=== PATIENT | male | born 1950 | race Caucasian/White ===

== ENCOUNTER 2023-04-24 08:30 | Outpatient (RCR) | payer MEDICARE, OTHER, SELFPAY | END 2023-04-24 23:59 | disposition home or self-care (01) | LOC: ROT 08:30 | PROVIDERS: ATTENDING PHYSICIAN Family Medicine | DX: I69.398 Other sequelae of cerebral infarction (principal); Z73.6 Limitation of activities due to disability; H53.9 Unspecified visual disturbance | CPT/HCPCS: 97167; 97530; 97537 ==

== ENCOUNTER 2023-05-16 11:49 | Observation (INO) | payer MEDICARE, OTHER, SELFPAY ==
[2023-05-16] VITALS (14 sets, daily range): BP systolic 68–171; BP diastolic 70–101
[2023-05-16 08:17] LABS: % Basophils 0.5 % (0-2); % Eosinophils 2.7 % (0-6); % Immature Granulocytes 0.3 % (0-0.5); % Lymphocytes 17.9 % (20.5-51.1); % Monocytes 8.1 % (1.7-9.3); % Neutrophils 70.5 % (42.2-75.2); Absolute Basophils 0.1 10^3/uL (0-0.2); Absolute Eosinophils 0.3 10^3/uL (0-0.7); Absolute Monocytes 0.9 10^3/uL (0.1-0.6); Absolute Neutrophils 7.8 10^3/uL (1.4-6.5); Hematocrit 43.2 % (39.0-52.0); Hemoglobin 14.3 g/dL (13.0-18.0); Mean Corp Hgb Conc. 33.1 g/dL (33.0-37.0); Mean Corpuscular Hgb 29.6 pg (27.0-31.0); Mean Corpuscular Volume 89.4 fL (80.0-94.0); Mean Platelet Volume 10.3 fL (7.4-10.4); Nucleated Red Blood Cells % 0 % (-); Platelet Count 273 10^3/uL (130-400); Red Blood Cell Count 4.83 10^6/uL (4.70-6.10); Red Cell Dist. Width 15.8 % (11.5-14.5); White Blood Cell Count 11.1 10^3/uL (4.8-10.8)
[2023-05-16 08:30] LABS: INR 1.19; PT 14.9 Sec (11.4-14.6)
[2023-05-16 08:31] LABS: APTT 48.3 Sec (23.4-35.0)
[2023-05-16 08:45] LABS: ALT (SGPT) 49 U/L (0-50); AST (SGOT) 53 U/L (17-59); Albumin 4.1 g/dl (3.5-5.0); Alkaline Phosphatase 91 U/L (38-126); Blood Urea Nitrogen 16 mg/dl (9-20); Carbon Dioxide 27 mmol/L (22-30); Chloride 106 mmol/L (98-107); Direct Bilirubin 0.6 mg/dl (0.0-0.4); Estimated Creatinine Clearance 70 ml/min; Glucose 121 mg/dl (70-99); LDH 212 U/L (120-246); Potassium 4.5 mmol/L (3.5-5.1); Sodium 138 mmol/L (135-145); Total Bilirubin 0.9 mg/dl (0.2-1.3); Total Protein 6.7 g/dl (6.3-8.2); eGFR > 60.00
[2023-05-16] MEDS: UNASYN IV (09:07)
[2023-05-16] MEDS: NSS 1000 IV (09:08)
[2023-05-16] MEDS: DECADRON 8 MG IV (09:09)
[2023-05-16] MEDS: BENADRYL 50 MG IV (09:17)
--- NOTE | 2023-05-16 09:24 | PTCARENOTE ---
0915 Patient states feels like throat closing. Face flushed, no hives. Unisyn immediately stopped and Dr Maldonado to bedside. Benadryl given IV with symptoms resolving with in 5 minutes. Approximately 20ml of unisyn infused.
[2023-05-16] MEDS: VANCOCIN 200 IV (10:02)
[2023-05-16] MEDS: ZOFRAN 54 MG IV (10:29)
--- NOTE | 2023-05-16 17:34 | W.PN.UPDATE ---
Update Note
Progress Note Update
s/p chemoembolization of HCC.
Patient denies any pain or nausea. OK for discharge to home. He knows to call IR physician insulation blower with any concerns or questions.
== END 2023-05-16 19:20 | disposition home or self-care (01) ==
LOC: 4 EAST ACU 11:49
PROVIDERS: ADMITTING PHYSICIAN Radiology Vascular & Interventional Radiology; ATTENDING PHYSICIAN Internal Medicine Hematology & Oncology
DX: C22.0 Liver cell carcinoma (principal); D72.829 Elevated white blood cell count, unspecified; H91.93 Unspecified hearing loss, bilateral; I48.91 Unspecified atrial fibrillation; I10 Essential (primary) hypertension; G47.33 Obstructive sleep apnea (adult) (pediatric); E66.9 Obesity, unspecified; E78.5 Hyperlipidemia, unspecified; E11.9 Type 2 diabetes mellitus without complications; K75.81 Nonalcoholic steatohepatitis (NASH); H35.039 Hypertensive retinopathy, unspecified eye; M54.16 Radiculopathy, lumbar region; Z68.36 Body mass index [BMI] 36.0-36.9, adult; Z91.018 Allergy to other foods; Z79.82 Long term (current) use of aspirin; Z79.01 Long term (current) use of anticoagulants; Z86.010 Personal history of colon polyps; Z72.0 Tobacco use; Z79.84 Long term (current) use of oral hypoglycemic drugs
CPT/HCPCS: 36247; 36415; 37243; 75726; 76937; 80053; 82248; 83615; 85025; 85610; 85730; 96420; C1769; G0378; J9000

== ENCOUNTER → 2023-09-01 09:20 | Outpatient (REF) | payer MEDICARE, OTHER, SELFPAY ==
[2023-09-01 10:57] LABS: % Basophils 0.5 % (0-2); % Eosinophils 3.3 % (0-6); % Immature Granulocytes 0.3 % (0-0.5); % Lymphocytes 23.4 % (20.5-51.1); % Monocytes 9.2 % (1.7-9.3); % Neutrophils 63.3 % (42.2-75.2); Absolute Basophils 0.1 10^3/uL (0-0.2); Absolute Eosinophils 0.4 10^3/uL (0-0.7); Absolute Lymphocytes 2.6 10^3/uL (1.2-3.4); Absolute Neutrophils 7.1 10^3/uL (1.4-6.5); Hematocrit 46.6 % (39.0-52.0); Hemoglobin 14.9 g/dL (13.0-18.0); Mean Corpuscular Hgb 28.3 pg (27.0-31.0); Mean Corpuscular Volume 88.4 fL (80.0-94.0); Mean Platelet Volume 10.6 fL (7.4-10.4); Nucleated Red Blood Cells % 0 % (-); Platelet Count 247 10^3/uL (130-400); Red Blood Cell Count 5.27 10^6/uL (4.70-6.10); Red Cell Dist. Width 17.1 % (11.5-14.5); White Blood Cell Count 11.3 10^3/uL (4.8-10.8)
[2023-09-01 11:42] LABS: ALT (SGPT) 50 U/L (0-50); AST (SGOT) 48 U/L (17-59); Albumin 4.1 g/dl (3.5-5.0); Alkaline Phosphatase 89 U/L (38-126); Blood Urea Nitrogen 17 mg/dl (9-20); Calcium 9.4 mg/dl (8.4-10.2); Carbon Dioxide 22 mmol/L (22-30); Chloride 107 mmol/L (98-107); Direct Bilirubin 0.4 mg/dl (0.0-0.4); Glucose 112 mg/dl (70-99); HDL Cholesterol 40 mg/dl; LDL Cholesterol, Calculated 45 mg/dl; Potassium 4.7 mmol/L (3.5-5.1); Sodium 140 mmol/L (135-145); Total Bilirubin 0.6 mg/dl (0.2-1.3); Total Cholesterol 108 mg/dl (50-199); Total Protein 6.8 g/dl (6.3-8.2); Triglyceride 115 mg/dl (10-149); Very Low Density Lipoprotein 23 mg/dl (0-30); eGFR > 60.00
[2023-09-01 12:05] LABS: Microalbumin/creatinine Ratio 23.6 mg/g
[2023-09-01 12:15] LABS: AFP Male/Tumor Marker 4.77 ng/ml
[2023-09-01 13:11] LABS: Glycohemoglobin (HgbA1c) 7.4 % (4.0-5.6)
== END ==
LOC: REG 09:20
PROVIDERS: ATTENDING PHYSICIAN Internal Medicine Hematology & Oncology; FAMILY PHYSICIAN Family Medicine
DX: D72.829 Elevated white blood cell count, unspecified (principal); Z72.0 Tobacco use; C22.0 Liver cell carcinoma; E13.319 Other specified diabetes mellitus with unspecified diabetic retinopathy without macular edema; E78.5 Hyperlipidemia, unspecified
CPT/HCPCS: 36415; 80053; 80061; 82043; 82105; 82248; 82570; 83036; 85025

== ENCOUNTER → 2023-09-05 10:02 | Outpatient (REF) | payer MEDICARE, OTHER, SELFPAY | LOC: RAD 10:02 | PROVIDERS: ATTENDING PHYSICIAN Internal Medicine Hematology & Oncology; FAMILY PHYSICIAN Family Medicine | DX: D72.829 Elevated white blood cell count, unspecified (principal); Z72.0 Tobacco use; C22.0 Liver cell carcinoma | CPT/HCPCS: 71260; 74177; Q9967 ==

== ENCOUNTER → 2023-09-15 16:59 | Outpatient (REF) | payer MEDICARE, OTHER, SELFPAY | LOC: MRI 16:59 | PROVIDERS: ATTENDING PHYSICIAN Internal Medicine Hematology & Oncology; FAMILY PHYSICIAN Family Medicine | DX: D72.829 Elevated white blood cell count, unspecified (principal); Z72.0 Tobacco use; C22.0 Liver cell carcinoma | CPT/HCPCS: 74183; A9581 ==

== ENCOUNTER → 2023-12-18 09:52 | Outpatient (REF) | payer MEDICARE, OTHER, SELFPAY | LOC: MRI 3T 09:52 | PROVIDERS: ATTENDING PHYSICIAN Internal Medicine Hematology & Oncology; FAMILY PHYSICIAN Family Medicine | DX: C22.0 Liver cell carcinoma (principal); D72.829 Elevated white blood cell count, unspecified | CPT/HCPCS: 74183; A9581 ==

== ENCOUNTER → 2023-12-26 12:02 | Outpatient (REF) | payer MEDICARE, OTHER, SELFPAY ==
[2023-12-26 13:19] LABS: % Basophils 0.4 % (0-2); % Eosinophils 2.3 % (0-6); % Immature Granulocytes 0.4 % (0-0.5); % Lymphocytes 18.6 % (20.5-51.1); % Monocytes 10.1 % (1.7-9.3); % Neutrophils 68.2 % (42.2-75.2); Absolute Basophils 0.1 10^3/uL (0-0.2); Absolute Eosinophils 0.3 10^3/uL (0-0.7); Absolute Immature Granulocytes 0.1 10^3/uL (0-0.05); Absolute Lymphocytes 2.2 10^3/uL (1.2-3.4); Absolute Monocytes 1.2 10^3/uL (0.1-0.6); Absolute Neutrophils 7.9 10^3/uL (1.4-6.5); Hematocrit 44.9 % (39.0-52.0); Hemoglobin 15.1 g/dL (13.0-18.0); Mean Corp Hgb Conc. 33.6 g/dL (33.0-37.0); Mean Corpuscular Hgb 30.7 pg (27.0-31.0); Mean Corpuscular Volume 91.3 fL (80.0-94.0); Mean Platelet Volume 10.4 fL (7.4-10.4); Nucleated Red Blood Cells % 0 % (-); Platelet Count 239 10^3/uL (130-400); Red Blood Cell Count 4.92 10^6/uL (4.70-6.10); Red Cell Dist. Width 15.3 % (11.5-14.5); White Blood Cell Count 11.5 10^3/uL (4.8-10.8)
[2023-12-26 13:54] LABS: Glycohemoglobin (HgbA1c) 6.9 % (4.0-5.6)
[2023-12-26 13:56] LABS: ALT (SGPT) 64 U/L (0-50); AST (SGOT) 68 U/L (17-59); Albumin 4.1 g/dl (3.5-5.0); Alkaline Phosphatase 90 U/L (38-126); Blood Urea Nitrogen 15 mg/dl (9-20); Calcium 9.4 mg/dl (8.4-10.2); Carbon Dioxide 22 mmol/L (22-30); Chloride 105 mmol/L (98-107); Direct Bilirubin 0.2 mg/dl (0.0-0.4); Glucose 126 mg/dl (70-99); Potassium 4.6 mmol/L (3.5-5.1); Sodium 142 mmol/L (135-145); Total Bilirubin 0.5 mg/dl (0.2-1.3); Total Protein 6.6 g/dl (6.3-8.2); eGFR > 60.00
[2023-12-26 14:29] LABS: AFP Male/Tumor Marker 5.32 ng/ml
== END ==
LOC: REG 12:02
PROVIDERS: ATTENDING PHYSICIAN Internal Medicine Hematology & Oncology; FAMILY PHYSICIAN Family Medicine
DX: D72.829 Elevated white blood cell count, unspecified (principal); Z72.0 Tobacco use; C22.0 Liver cell carcinoma; E11.21 Type 2 diabetes mellitus with diabetic nephropathy
CPT/HCPCS: 36415; 80053; 82105; 82248; 83036; 85025

== ENCOUNTER 2024-02-23 14:33 | Emergency (ER) | payer MEDICARE, OTHER, SELFPAY ==
[2024-02-23 14:37] VITALS: BP 133/84
--- NOTE | 2024-02-23 15:54 | ED.MUSCINJ ---
HPI-Injury
<Mari Griffin LEAD INJECTION MOLD TECHNICIAN - Last Filed: 02/23/24 23:07>
General
Chief Complaint: Extremity Pain (non-traumatic)
Source: patient
Exam Limitations: none
Time Seen by Provider: 02/23/24 15:54
Nursing documentation reviewed up to this point in time: agreed with
History of Present Illness-Injury
Initial Injury comments:
73-year-old male with history of A-fib on Eliquis, HTN, GI bleed, TIA, presents for two days of intermittent right leg feeling like jelly, denies falling but it seems to just give out. Denies overuse or injury. Denies pain. His concern is that he is
afraid to drive or go on stairs for fear of the leg giving out. Denies pain in the leg, denies swelling, redness or warmth. Denies bony pain. Denies facial or upper extremity weakness. Has not fallen
Past History
<Mari Griffin, LEAD INJECTION MOLD TECHNICIAN - Last Filed: 02/23/24 23:07>
Past History
ED Past Medical History: Arrthythmia, CVA, HTN and Other (Prediabetes)
ED Past Surgical History: Other (hernia repair)
Social History
Tobacco: Former smoker
Alcohol: Occasional
Living: with family
Family History
Family History: Other (Father with diverticulosis)
Review of Systems
<Mari Griffin, LEAD INJECTION MOLD TECHNICIAN - Last Filed: 02/23/24 23:07>
Review of Systems
Allergies reviewed?: Yes
All Other Systems: ROS reviewed and negative except as documented in HPI and ROS
Constitutional: Denies fever
Respiratory: Denies trouble breathing
Cardiac: Denies chest pain
ABD/GI: Denies abdominal pain, diarrhea or constipated
: Denies dysuria, frequency, flank pain, incontinence, difficulty voiding or urgency
Musculoskeletal: Denies edema or neck pain
Skin: Reports no symptoms
Neurological: Reports weakness (intermittent right leg weakness); Denies dizzy, headache or numbness
Phy Exam
<Mari Griffin NP - Last Filed: 02/23/24 23:07>
Physical Exam
Physical Exam:
GENERAL: No acute distress. A&Ox3.
CONSTITUTIONAL: Afebrile.
EYES: PERRL, conjunctivae normal
ENMT: moist mucus membranes, Pharynx nl
RESPIRATORY: Regular respirations, nonlabored, lungs clear.
CARDIOVASCULAR: Regular rate and rhythm, no murmurs, no rubs.
GI: Soft, nontender, normal BS
MUSCULOSKELETAL: No spinal bony tenderness, back is non tender. Pt bends, squats and touches floor and back up with ease. No limited ROM. Moves with ease. Well perfused.
SKIN: Warm, dry, pink
PSYCH: Normal mood and affect. Well kept, interactive and appropriate
NEUROLOGIC: Awake, alert and oriented. No focal neurological deficits. Strength 5/5 throughout, ambulates well with steady gait. Patellar reflexes normal, dorsi and plantar flexion intact.
<Mari Griffin LEAD INJECTION MOLD TECHNICIAN - Last Filed: 02/23/24 23:07>
MDM/Problems Addressed
Differential Diagnosis Includes:
sciatica, lumbar radiculopathy
MDM/Problems Addressed:
73-year-old male with history of A-fib on Eliquis, HTN, GI bleed, TIA, presents for two days of intermittent right leg feeling like jelly, denies falling but it seems to just give out. Denies overuse or injury. Denies pain. His concern is that he is
afraid to drive or go on stairs for fear of the leg giving out. Denies pain in the leg, denies swelling, redness or warmth. Denies bony pain. Has not fallen.
Pt has no neuro deficits, no indication of CVA/TIA
Pain elicited with certain movement, suspect lumbar radiculopathy
Pt ambulating well at discharge, friend with him has a cane he can use. He has railings on all of his stairs at home.
Dr. King evaluated pt and agrees with assessment and plan.
<Mari Griffin NP - Last Filed: 02/23/24 23:07>
*Critical Care Note
Total Time (30-74mins, 75-104mins- exclusive of procedures): Not Applicable
ED Attending Note
<Mari Griffin NP - Last Filed: 02/23/24 23:07>
-
Portions of this chart may have been created with voice recognition software.� Occasional wrong word or��sound alike� substitutions may have occurred due to the inherent limitations of voice recognition software.
<Greg King MD - Last Filed: 02/23/24 19:37>
ED Attending Note
Patient seen and examined by attending physician: Yes
ED Attending Note:
I have seen and evaluated the patient with a [id number] encounter. I have spoken to the advance practicer provider and involved in the medical history, the physical exam, medical decision making.
Evaluation and management service: agree unless noted differently below.
Results interpretation: agree unless noted differently below.
Focused HPI: 73-year-old male with history as documented presents for evaluation of intermittent right leg weakness. Patient reports intermittently over the past 2 to 3 days he has had episodes where his right leg feels weak 'like jelly' underneath
him. He says that these episodes typically occur after he is sitting for a prolonged period but occasionally happen when he is walking. He reports that usually last for about a minute or 2 and then resolves. He says that he never has any
associated weakness in the right arm, never has weakness on the left side. He denies any associated headache, speech or vision changes. He denies any back pain. Denies any other complaints. He has had issues with sciatica in the past he says.
Physical exam: Awake alert nondistressed. Vital signs normal. Cranial nerves are intact 2 through 12. Speech fluid no dysarthria or aphasia. Motor and sensory function intact proximally and distally in the upper and lower
extremities�specifically strength is 5/5 proximally and distally on flexion at the hip, flexion/extension at the knee, dorsiflexion/plantarflexion in the ankle on the right side. Patient is ambulatory in the ED.
Medical Decision Makin-year-old male presents for occasional right leg weakness over the past few days. No other associated neurologic symptoms, symptoms confined to the right leg and seem to be triggered by prolonged sitting. Suspect likely
lumbar radiculopathy. Asymptomatic at present. Stable for discharge, follow-up with PCP as an outpatient.
Discharge Plan
Departure
Patient Disposition: Home (Routine Discharge)
Date of Disposition: 02/23/24
Time of Disposition: 17:03
Patient with high blood pressure during this ER visit?: No
Condition: Good
Discharge Problem:
Acute right lumbar radiculopathy
Instructions: Sciatica (DC), Radiculopathy (DC)
Prescriptions:
No Action
multivitamin with folic acid [Tab-A-Rafi] 1 TABLET tablet
1 tab PO DAILY
ascorbic acid (vitamin C) [Vitamin C] 1,000 mg Tablet
1,000 mg PO DAILY
acetaminophen [Tylenol] 325 mg Tablet
650 mg PO Q4HPRN PRN (Reason: mild pain)
diltiazem HCl 180 mg Capsule,Extended Release 24 Hr
180 mg PO DAILY
rosuvastatin [Crestor] 20 mg Tablet
20 mg PO DAILY
metformin 500 mg Tablet Extended Release 24 Hr
1,500 mg PO DAILY@0800
coQ10 (ubiquinol) 200 mg Capsule
200 mg PO DAILY
krill oil 500 mg Capsule
350 mg PO DAILY
Eliquis 5 mg Tablet
5 mg PO BID
PreserVision AREDS-2 250-90-40-1 mg Capsule
1 tab PO BID
Referrals:
Norma Sauceda MD [Family Provider] - Call in 1-3 days for appt
Activity Restrictions/Additional Instructions:
As we discussed, take Tylenol 1000 mg up to 3 times a day as needed for back, leg discomfort.
You have no sign of a stroke
See your doctor in 5-7 days if not better by then
Interventions
Interventions:
*Risk Screen - Suicide Last Done: 02/23/24 14:37
*General Assessment Last Done: 02/23/24 14:37
*Neglect/Abuse Screening Last Done: 02/23/24 17:13
*ED COVID-19 Vaccine History Last Done: 02/23/24 14:37
*Nursing Disposition Last Done: 02/23/24 17:13
ED-Skin Assessment Last Done: 02/23/24 15:13
ED-Musculoskeletal Assessment Last Done: 02/23/24 15:13
Discharge Date and Time
Discharge Date/Time: 02/23/24 17:15
Print Language: CZECH
[2024-02-23 17:13] VITALS: BP 130/84
== END 2024-02-23 17:15 | disposition home or self-care (01) ==
LOC: EMR 14:33
PROVIDERS: EMERGENCY PHYSICIAN Emergency Medicine; FAMILY PHYSICIAN Family Medicine
DX: M54.16 Radiculopathy, lumbar region (principal); I10 Essential (primary) hypertension; Z87.891 Personal history of nicotine dependence; I48.91 Unspecified atrial fibrillation; R73.03 Prediabetes; Z79.01 Long term (current) use of anticoagulants; Z83.79 Family history of other diseases of the digestive system; Z86.73 Personal history of transient ischemic attack (TIA), and cerebral infarction without residual deficits
CPT/HCPCS: 99282

== ENCOUNTER 2024-03-21 06:51 | Day surgery (SDC) | payer MEDICARE, OTHER, SELFPAY ==
[2024-03-21] VITALS (9 sets, daily range): BP systolic 58–147; BP diastolic 55–85
[2024-03-21 07:32] LABS: % Basophils 0.4 % (0-2); % Eosinophils 2.2 % (0-6); % Immature Granulocytes 0.4 % (0-0.5); % Lymphocytes 16.5 % (20.5-51.1); % Monocytes 7.8 % (1.7-9.3); % Neutrophils 72.7 % (42.2-75.2); Absolute Eosinophils 0.3 10^3/uL (0-0.7); Absolute Lymphocytes 1.9 10^3/uL (1.2-3.4); Absolute Monocytes 0.9 10^3/uL (0.1-0.6); Absolute Neutrophils 8.3 10^3/uL (1.4-6.5); Hematocrit 44.9 % (39.0-52.0); Hemoglobin 14.4 g/dL (13.0-18.0); Mean Corp Hgb Conc. 32.1 g/dL (33.0-37.0); Mean Corpuscular Hgb 29.2 pg (27.0-31.0); Mean Corpuscular Volume 91.1 fL (80.0-94.0); Mean Platelet Volume 10.3 fL (7.4-10.4); Nucleated Red Blood Cells % 0 % (-); Platelet Count 233 10^3/uL (130-400); Red Blood Cell Count 4.93 10^6/uL (4.70-6.10); Red Cell Dist. Width 15.1 % (11.5-14.5); White Blood Cell Count 11.4 10^3/uL (4.8-10.8)
[2024-03-21 07:33] LABS: INR 1.07; PT 14.4 Sec (11.4-14.6)
[2024-03-21 07:56] LABS: APTT 50.4 Sec (23.4-35.0)
[2024-03-21] MEDS: ZOFRAN 54 MG IV (08:04)
[2024-03-21] MEDS: DECADRON 8 MG IV (08:09)
[2024-03-21 08:13] LABS: ALT (SGPT) 66 U/L (0-50); AST (SGOT) 61 U/L (17-59); Albumin 4.1 g/dl (3.5-5.0); Alkaline Phosphatase 91 U/L (38-126); Blood Urea Nitrogen 18 mg/dl (9-20); Carbon Dioxide 26 mmol/L (22-30); Chloride 106 mmol/L (98-107); Direct Bilirubin 0.3 mg/dl (0.0-0.4); Glucose 140 mg/dl (70-99); LDH 208 U/L (120-246); Potassium 4.4 mmol/L (3.5-5.1); Sodium 140 mmol/L (135-145); Total Bilirubin 0.6 mg/dl (0.2-1.3); Total Protein 6.9 g/dl (6.3-8.2); eGFR > 60.00
[2024-03-21] MEDS: NSS 1000 IV ×2 (08:13→17:28)
[2024-03-21] MEDS: BENADRYL 50 MG IV (08:14)
[2024-03-21] MEDS: GENTAMICIN 50 IV (08:30)
[2024-03-21] MEDS: VANCOCIN 530 MG IV (09:06)
[2024-03-21] MEDS: CRESTOR 20 MG PO (17:26)
[2024-03-22 03:17] VITALS: BP 143/63
[2024-03-22] MEDS: NSS IV (05:33)
--- NOTE | 2024-03-22 06:07 | PTCARENOTE ---
Pt s/p chemo embolization of liver - right groin dressing CDI. Pt denied pain. Right groin w + pulse, DP palpable but weak. VSS, care ongoing.
[2024-03-22 07:15] VITALS: BP 117/67
--- NOTE | 2024-03-22 07:47 | W.PN.GENERIC ---
Assessment / Plan
-
73 yo male with HCC s/p chemoembolization
He is feeling well
No groin hematoma
Tolerating POs
Voiding spontaneously
Stable for discharge
I spent more than 30 minutes in reviewing medical records, recent labs and relevant imaging as well as performing history, physical exam and documenting findings. I reviewed the procedure and expected outcomes with the patient
Physician Progress Note
Subjective
This is a 89year-old male with past medical history significant for atrial fibrillation, hypertension, MARIBEL, hyperlipidemia, type 2 diabetes, Irwin, CVA who with a liver mass. He underwent chemoebolization on 05/16/23. Recent imaging showed
progression of disease. He had another chemoembolization yetserday./ He has some abdominal cramping. He denies any fever, chills, nausea or vomiting. He is voiding spontaneously and tolerating POs
PMH: HCC, Atrial fibrillation, colon polyps, hypertension, MARIBEL, obesity, hyperlipidemia, type 2 diabetes, mass, infectious colitis, hypertensive retinopathy, lumbar radiculopathy,.
PSH: Left inguinal repair, bilateral cataract, mastectomy, tooth extraction.
Current Medications: ASA 81 mg q. day, Cardizem CD 180 mg every 24 hours, co-Q10, Eliquis 5 mg by mouth twice a day, Krill Oil 300 mg daily, metformin ER 500 mg 3 tablets by mouth q. day, multivitamin, PreserVision, vitamin C.olmesartan 20 qd,
rosuvastatin 20 mg qd.
Allergies: Fuzzy fruit, ampicilin, sulbactam.
Objective
Vital Signs
Temp Pulse Resp BP Pulse Ox
98.5 F 70 16 143/63 95
03/22/24 03:17 03/22/24 03:17 03/22/24 03:17 03/22/24 03:17 03/22/24 03:17
Lab Results
03/21/24 07:15
03/21/24 07:15
Physical examination: This is an obese 73-year-old male who is awake alert and oriented in no acute distress lying comfortably in bedr. Color is good without jaundice, skin is warm and dry. Sclerae are nonicteric. Heart irregular without murmur.
Lungs are clear to auscultation and equal throughout. Abdomen is soft, round and nontender. No HSM. Active bowel sounds.Groin dressing CDI. No hematoma. Palpable pedal pulses
[2024-03-22] MEDS: ELIQUIS 5 MG PO (08:05)
[2024-03-22] MEDS: CARDIZEM CD 180 MG PO (08:05)
== END 2024-03-22 09:53 | disposition home or self-care (01) ==
LOC: RADI 06:51
PROVIDERS: ATTENDING PHYSICIAN Internal Medicine Hematology & Oncology; FAMILY PHYSICIAN Family Medicine
DX: C22.0 Liver cell carcinoma (principal)
CPT/HCPCS: 37243; 96420; 36246; 36415; 75726; 76937; 80053; 82248; 83615; 85025; 85610; 85730; 99152; 99153; C1769; C1887; J1580; J9000

== ENCOUNTER → 2024-04-26 19:53 | Outpatient (REF) | payer MEDICARE, OTHER, SELFPAY | LOC: MRI 19:53 | PROVIDERS: ATTENDING PHYSICIAN Internal Medicine Hematology & Oncology; FAMILY PHYSICIAN Family Medicine | DX: D72.829 Elevated white blood cell count, unspecified (principal); Z72.0 Tobacco use; C22.0 Liver cell carcinoma | CPT/HCPCS: 74183; A9581 ==

== ENCOUNTER → 2024-05-07 10:54 | Outpatient (REF) | payer MEDICARE, OTHER, SELFPAY ==
[2024-05-07 12:19] LABS: % Basophils 0.4 % (0-2); % Eosinophils 2.5 % (0-6); % Immature Granulocytes 0.5 % (0-0.5); % Lymphocytes 14.3 % (20.5-51.1); % Monocytes 6.7 % (1.7-9.3); % Neutrophils 75.6 % (42.2-75.2); Absolute Basophils 0.1 10^3/uL (0-0.2); Absolute Eosinophils 0.3 10^3/uL (0-0.7); Absolute Immature Granulocytes 0.1 10^3/uL (0-0.05); Absolute Lymphocytes 1.7 10^3/uL (1.2-3.4); Absolute Monocytes 0.8 10^3/uL (0.1-0.6); Absolute Neutrophils 8.9 10^3/uL (1.4-6.5); Hematocrit 38.9 % (39.0-52.0); Hemoglobin 12.6 g/dL (13.0-18.0); Mean Corp Hgb Conc. 32.4 g/dL (33.0-37.0); Mean Corpuscular Hgb 28.6 pg (27.0-31.0); Mean Corpuscular Volume 88.2 fL (80.0-94.0); Mean Platelet Volume 11.7 fL (7.4-10.4); Nucleated Red Blood Cells % 0 % (-); Platelet Count 213 10^3/uL (130-400); Red Blood Cell Count 4.41 10^6/uL (4.70-6.10); Red Cell Dist. Width 16.1 % (11.5-14.5); White Blood Cell Count 11.7 10^3/uL (4.8-10.8)
[2024-05-07 13:26] LABS: ALT (SGPT) 51 U/L (0-50); AST (SGOT) 40 U/L (17-59); Albumin 3.8 g/dl (3.5-5.0); Alkaline Phosphatase 132 U/L (38-126); Blood Urea Nitrogen 13 mg/dl (9-20); Calcium 8.8 mg/dl (8.4-10.2); Carbon Dioxide 24 mmol/L (22-30); Chloride 102 mmol/L (98-107); Direct Bilirubin 0.1 mg/dl (0.0-0.4); Glucose 205 mg/dl (70-99); Potassium 4.6 mmol/L (3.5-5.1); Sodium 139 mmol/L (135-145); Total Bilirubin 0.3 mg/dl (0.2-1.3); Total Protein 6.5 g/dl (6.3-8.2); eGFR > 60.00
== END ==
LOC: REG 10:54
PROVIDERS: ATTENDING PHYSICIAN Internal Medicine Hematology & Oncology
DX: D72.829 Elevated white blood cell count, unspecified (principal); Z72.0 Tobacco use; C22.0 Liver cell carcinoma
CPT/HCPCS: 36415; 80053; 82248; 85025

== ENCOUNTER → 2024-06-13 11:39 | Outpatient (REF) | payer MEDICARE, OTHER, SELFPAY ==
[2024-06-13 12:28] LABS: % Basophils 0.5 % (0-2); % Eosinophils 2.8 % (0-6); % Immature Granulocytes 0.7 % (0-0.5); % Lymphocytes 22.1 % (20.5-51.1); % Monocytes 9.2 % (1.7-9.3); % Neutrophils 64.7 % (42.2-75.2); Absolute Basophils 0.1 10^3/uL (0-0.2); Absolute Eosinophils 0.3 10^3/uL (0-0.7); Absolute Immature Granulocytes 0.1 10^3/uL (0-0.05); Absolute Lymphocytes 2.1 10^3/uL (1.2-3.4); Absolute Monocytes 0.9 10^3/uL (0.1-0.6); Absolute Neutrophils 6.2 10^3/uL (1.4-6.5); Hematocrit 45.1 % (39.0-52.0); Hemoglobin 14.1 g/dL (13.0-18.0); Mean Corp Hgb Conc. 31.3 g/dL (33.0-37.0); Mean Corpuscular Hgb 28.7 pg (27.0-31.0); Mean Corpuscular Volume 91.7 fL (80.0-94.0); Mean Platelet Volume 10.2 fL (7.4-10.4); Nucleated Red Blood Cells % 0 % (-); Platelet Count 254 10^3/uL (130-400); Red Blood Cell Count 4.92 10^6/uL (4.70-6.10); Red Cell Dist. Width 17.3 % (11.5-14.5); White Blood Cell Count 9.5 10^3/uL (4.8-10.8)
[2024-06-13 12:45] LABS: ALT (SGPT) 64 U/L (0-50); AST (SGOT) 56 U/L (17-59); Albumin 4.2 g/dl (3.5-5.0); Alkaline Phosphatase 109 U/L (38-126); Blood Urea Nitrogen 21 mg/dl (9-20); Calcium 9.4 mg/dl (8.4-10.2); Carbon Dioxide 22 mmol/L (22-30); Chloride 107 mmol/L (98-107); Direct Bilirubin 0.2 mg/dl (0.0-0.4); Glucose 115 mg/dl (70-99); Potassium 4.8 mmol/L (3.5-5.1); Sodium 140 mmol/L (135-145); Total Bilirubin 0.7 mg/dl (0.2-1.3); Total Protein 6.9 g/dl (6.3-8.2); eGFR > 60.00
== END ==
LOC: REG 11:39
PROVIDERS: ATTENDING PHYSICIAN Internal Medicine Hematology & Oncology; FAMILY PHYSICIAN Family Medicine
DX: D72.829 Elevated white blood cell count, unspecified (principal); Z72.0 Tobacco use; C22.0 Liver cell carcinoma
CPT/HCPCS: 36415; 80053; 82248; 85025

== ENCOUNTER → 2024-06-26 09:36 | Outpatient (REF) | payer MEDICARE, OTHER, SELFPAY ==
[2024-06-26 10:29] LABS: % Basophils 0.5 % (0-2); % Eosinophils 2.7 % (0-6); % Immature Granulocytes 0.4 % (0-0.5); % Lymphocytes 18.4 % (20.5-51.1); % Monocytes 9.8 % (1.7-9.3); % Neutrophils 68.2 % (42.2-75.2); Absolute Basophils 0.1 10^3/uL (0-0.2); Absolute Eosinophils 0.3 10^3/uL (0-0.7); Absolute Monocytes 1.1 10^3/uL (0.1-0.6); Absolute Neutrophils 7.3 10^3/uL (1.4-6.5); Hematocrit 41.5 % (39.0-52.0); Hemoglobin 13.5 g/dL (13.0-18.0); Mean Corp Hgb Conc. 32.5 g/dL (33.0-37.0); Mean Corpuscular Volume 89.1 fL (80.0-94.0); Mean Platelet Volume 10.2 fL (7.4-10.4); Nucleated Red Blood Cells % 0 % (-); Platelet Count 226 10^3/uL (130-400); Red Blood Cell Count 4.66 10^6/uL (4.70-6.10); Red Cell Dist. Width 17.4 % (11.5-14.5); White Blood Cell Count 10.7 10^3/uL (4.8-10.8)
[2024-06-26 12:51] LABS: TSH 4.47 uIU/ml (0.47-4.68)
[2024-06-26 13:00] LABS: ALT (SGPT) 60 U/L (0-50); AST (SGOT) 50 U/L (17-59); Albumin 4.3 g/dl (3.5-5.0); Alkaline Phosphatase 112 U/L (38-126); Blood Urea Nitrogen 17 mg/dl (9-20); Calcium 9.4 mg/dl (8.4-10.2); Carbon Dioxide 19 mmol/L (22-30); Chloride 104 mmol/L (98-107); Glucose 116 mg/dl (70-99); Potassium 4.7 mmol/L (3.5-5.1); Sodium 137 mmol/L (135-145); Total Bilirubin 0.6 mg/dl (0.2-1.3); eGFR > 60.00
== END ==
LOC: REG 09:36
PROVIDERS: ATTENDING PHYSICIAN Internal Medicine Hematology & Oncology; FAMILY PHYSICIAN Family Medicine
DX: D72.829 Elevated white blood cell count, unspecified (principal); Z72.0 Tobacco use; C22.0 Liver cell carcinoma; E78.5 Hyperlipidemia, unspecified
CPT/HCPCS: 36415; 80053; 82024; 84443; 85025

== ENCOUNTER → 2024-07-08 10:10 | Outpatient (REF) | payer MEDICARE, OTHER, SELFPAY ==
[2024-07-08 11:10] VITALS: BP 135/83; BP_SYST 70
[2024-07-08] MEDS: ANCEF 10 IV (11:49)
[2024-07-08 12:35] VITALS: BP 147/80; BP_SYST 67
[2024-07-08 12:40] VITALS: BP 134/84; BP_SYST 74
== END ==
LOC: RADI 10:10
PROVIDERS: ATTENDING PHYSICIAN Internal Medicine Hematology & Oncology; FAMILY PHYSICIAN Family Medicine
DX: C22.0 Liver cell carcinoma (principal)
CPT/HCPCS: 36561; 76937; 77001; 99152; 99153; C1788

== ENCOUNTER 2024-07-18 09:25 | Day surgery (SDC) | payer MEDICARE, OTHER, SELFPAY ==
[2024-07-18] VITALS (13 sets, daily range): BP systolic 60–159; BP diastolic 61–89; BMI 33.8
[2024-07-18 07:37] LABS: % Basophils 0.5 % (0-2); % Eosinophils 2.7 % (0-6); % Immature Granulocytes 0.4 % (0-0.5); % Lymphocytes 17.3 % (20.5-51.1); % Monocytes 8.2 % (1.7-9.3); % Neutrophils 70.9 % (42.2-75.2); Absolute Basophils 0.1 10^3/uL (0-0.2); Absolute Eosinophils 0.3 10^3/uL (0-0.7); Absolute Lymphocytes 1.7 10^3/uL (1.2-3.4); Absolute Monocytes 0.8 10^3/uL (0.1-0.6); Hematocrit 42.7 % (39.0-52.0); Hemoglobin 13.7 g/dL (13.0-18.0); Mean Corp Hgb Conc. 32.1 g/dL (33.0-37.0); Mean Corpuscular Hgb 28.5 pg (27.0-31.0); Mean Platelet Volume 10.3 fL (7.4-10.4); Nucleated Red Blood Cells % 0 % (-); Platelet Count 237 10^3/uL (130-400); White Blood Cell Count 9.9 10^3/uL (4.8-10.8)
[2024-07-18 07:48] LABS: INR 1.07; PT 14.4 Sec (11.4-14.6)
[2024-07-18] MEDS: BENADRYL 50 MG IV (07:57)
[2024-07-18] MEDS: DECADRON 8 MG IV (07:59)
[2024-07-18] MEDS: NSS 1000 IV ×2 (08:09→17:48)
[2024-07-18 08:21] LABS: ALT (SGPT) 57 U/L (0-50); AST (SGOT) 57 U/L (17-59); Albumin 3.9 g/dl (3.5-5.0); Alkaline Phosphatase 117 U/L (38-126); Blood Urea Nitrogen 17 mg/dl (9-20); Calcium 9.1 mg/dl (8.4-10.2); Carbon Dioxide 26 mmol/L (22-30); Chloride 108 mmol/L (98-107); Direct Bilirubin 0.2 mg/dl (0.0-0.4); Estimated Creatinine Clearance 82 ml/min; Glucose 127 mg/dl (70-99); LDH 251 U/L (120-246); Potassium 4.4 mmol/L (3.5-5.1); Sodium 142 mmol/L (135-145); Total Bilirubin 0.6 mg/dl (0.2-1.3); Total Protein 6.7 g/dl (6.3-8.2); eGFR > 60.00
[2024-07-18] MEDS: ZOFRAN 54 MG IV (08:28)
[2024-07-18] MEDS: VANCOCIN 530 MG IV (09:27)
[2024-07-18] MEDS: GENTAMICIN 50 IV (09:52)
[2024-07-18] MEDS: ZOFRAN 4 MG IV (12:50)
[2024-07-18] MEDS: DILAUDID 0.5 MG IV ×2 (12:50→16:23)
[2024-07-18 13:04] LABS: Glucose - Point of Care 170 mg/dl (70-99)
--- NOTE | 2024-07-18 17:06 | PTCARENOTE ---
Patient admitted to room 2127 from [facility] s/p chemoembolization. Patient AAOx3, drowsy, able to be woken by verbal and tactile stimuli, [place] with no aids at bedside. VSS, patient c/o 6 abd cramping, patient ordered Kpad to abdomen per oncology and
administered PRN 0.5 mg IV dilaudid - see JUN. Patient bladder scanned for 601ml, BS SC protocol ordered per onc, patient with no urge to urinate, straight cathed for 700ml clear yellow urine- see documentation. Patient tolerated procedure, IVF
infusing through R subq port, oriented to room and call knox.
[2024-07-18] MEDS: CRESTOR 20 MG PO (17:47)
--- NOTE | 2024-07-18 18:05 | PTCARENOTE ---
Patient off bedrest/HOB restriction at 1730 per [facility]. Vitals stable, neurovascular checks WNL. IVF infusing through subq port.
[2024-07-18] MEDS: ROXICODONE 5 MG PO (20:24)
[2024-07-19] MEDS: NSS 1000 IV (03:09)
[2024-07-19 03:31] VITALS: BP 132/72
[2024-07-19 07:10] VITALS: BP 127/68
--- NOTE | 2024-07-19 07:25 | W.PN.GENERIC ---
Assessment / Plan
-
72 yo male with liver lesion had chemoembolization yesterday. He is feeling well today. He is tolerating POs and now voiding spontaneously. No pain, fever or chills
Plan to D/C home today
Physician Progress Note
Subjective
72-year-old male with past medical history significant for atrial fibrillation, hypertension, MARIBEL, hyperlipidemia, type 2 diabetes, Irwin, CVA and liver metastasaes. He has undergone Chemoembolization in the past. His most recent imaging reveals a
large right hepatic mass. He otherwise feels well. He is on immunotherapy. He had a chemoembolization of this lesion yesterday. He feels well this morning. He had some difficulty urinating after the proceudre and had to be straight cathed. He
has voided spontaneously since. He is tolerating POs He denies any ferver, chills, abdominal pain, nausea or vomiting.
PMH: Atrial fibrillation, colon polyps, hypertension, MARIBEL, obesity, hyperlipidemia, type 2 diabetes, mass, infectious colitis, hypertensive retinopathy, lumbar radiculopathy,.
PSH: Left inguinal repair, bilateral cataract, mastectomy, tooth extraction.
Current Medications: ASA 81 mg q. day, APAP 650 po Q4h prn Cardizem CD 180 mg every 24 hours, co-Q10 200 mg poQD, Eliquis 5 mg by mouth twice a day, Krill Oil 350 mg daily, metformin ER 500 mg 3 tablets by mouth q. day, multivitamin 1 tab po qd,
PreserVision 1 tab BID, vitamin C 1000mg po qd, olmesartan 20 mg po qd, rosouvastatin 20 mg po qd
Allergies: Fuzzy fruit, almond, sulbactam and ampicillin.
Objective
Vital Signs
Temp Pulse Resp BP Pulse Ox
98.4 F 61 17 127/68 96
07/19/24 07:10 07/19/24 07:10 07/19/24 07:10 07/19/24 07:10 07/19/24 07:10
Lab Results
07/18/24 07:08
07/18/24 07:08
Physical examination: This is an obese 73-year-old male who is awake alert and oriented in no acute distress lying comfortably in a bed. Color is good without jaundice, skin is warm and dry. Sclerae are nonicteric. Heart regular without murmur.
Lungs are clear to auscultation and equal throughout. Abdomen is soft, round and nontender. No HSM. Active bowel sounds. Right groin dressing is CDI. No hematoma. Pulses intact
[2024-07-19] MEDS: GLUCOPHAGE 1500 MG PO (07:35)
[2024-07-19] MEDS: CARDIZEM CD 180 MG PO (07:35)
[2024-07-19] MEDS: ELIQUIS 5 MG PO (07:36)
[2024-07-19] MEDS: BENICAR 20 MG PO (07:36)
[2024-07-19 10:36] VITALS: BP 141/72
--- NOTE | 2024-07-19 10:38 | CM ---
Met with pt at bedside
Initial assessment completed; lives alone in a 1 story home - no LUCINDA
Independent at baseline, no devices for ambulation, drives
DME - CPAP
SNF/HH - denies past hx
Has ride at d/c - sister
PCP - Norma Sauceda
Pharm - [facility] - [place]
Plan - home no needs
--- NOTE | 2024-07-19 10:50 | PTCARENOTE ---
Patient discharged home, transported by . R subq port de-accessed by IV nurse. Discharge vitals taken by tech. Patient dressed and gathered belongings in room independently. Patient voiding in bathroom appropriately, bladder scanned post void
by tech for 0ml. This RN reviewed discharge medications/instructions with patient who verbalized understanding. Patient taken down to sister's car at [facility] via staff escort and wheelchair.
== END 2024-07-19 11:01 | disposition home or self-care (01) ==
LOC: RADI 09:25
PROVIDERS: ATTENDING PHYSICIAN Internal Medicine Hematology & Oncology; FAMILY PHYSICIAN Family Medicine
DX: C22.0 Liver cell carcinoma (principal)
CPT/HCPCS: 37243; 36247; 96420; 36415; 75726; 76937; 80053; 82248; 82962; 83615; 85025; 85610; 85730; 99152; 99153; C1769; J1580; J9000

== ENCOUNTER → 2024-07-24 12:57 | Outpatient (REF) | payer MEDICARE, OTHER, SELFPAY ==
[2024-07-24 13:55] LABS: % Basophils 0.3 % (0-2); % Immature Granulocytes 0.8 % (0-0.5); % Lymphocytes 7.8 % (20.5-51.1); % Monocytes 11.8 % (1.7-9.3); % Neutrophils 75.3 % (42.2-75.2); Absolute Eosinophils 0.5 10^3/uL (0-0.7); Absolute Immature Granulocytes 0.1 10^3/uL (0-0.05); Absolute Lymphocytes 0.9 10^3/uL (1.2-3.4); Absolute Monocytes 1.4 10^3/uL (0.1-0.6); Absolute Neutrophils 8.9 10^3/uL (1.4-6.5); Hematocrit 40.7 % (39.0-52.0); Hemoglobin 13.5 g/dL (13.0-18.0); Mean Corp Hgb Conc. 33.2 g/dL (33.0-37.0); Mean Corpuscular Hgb 28.9 pg (27.0-31.0); Mean Corpuscular Volume 87.2 fL (80.0-94.0); Mean Platelet Volume 10.3 fL (7.4-10.4); Nucleated Red Blood Cells % 0 % (-); Platelet Count 232 10^3/uL (130-400); Red Blood Cell Count 4.67 10^6/uL (4.70-6.10); Red Cell Dist. Width 16.7 % (11.5-14.5); White Blood Cell Count 11.8 10^3/uL (4.8-10.8)
[2024-07-24 14:26] LABS: ALT (SGPT) 189 U/L (0-50); AST (SGOT) 80 U/L (17-59); Albumin 3.2 g/dl (3.5-5.0); Alkaline Phosphatase 125 U/L (38-126); Blood Urea Nitrogen 18 mg/dl (9-20); Calcium 8.8 mg/dl (8.4-10.2); Carbon Dioxide 24 mmol/L (22-30); Chloride 106 mmol/L (98-107); Glucose 129 mg/dl (70-99); Sodium 140 mmol/L (135-145); Total Bilirubin 0.7 mg/dl (0.2-1.3); eGFR > 60.00
[2024-07-24 16:54] LABS: TSH 3.64 uIU/ml (0.47-4.68)
[2024-07-26 15:02] LABS: Adrenocorticotropic Hormone 4.1 pg/mL (7.2-63.3)
== END ==
LOC: REG 12:57
PROVIDERS: ATTENDING PHYSICIAN Internal Medicine Hematology & Oncology; FAMILY PHYSICIAN Family Medicine
DX: D72.829 Elevated white blood cell count, unspecified (principal); Z72.0 Tobacco use; C22.0 Liver cell carcinoma; E78.5 Hyperlipidemia, unspecified
CPT/HCPCS: 36415; 80053; 82024; 84443; 85025

== ENCOUNTER → 2024-08-16 08:20 | Outpatient (REF) | payer MEDICARE, OTHER, SELFPAY ==
[2024-08-16 10:55] LABS: ALT (SGPT) 50 U/L (0-50); AST (SGOT) 49 U/L (17-59); Albumin 3.3 g/dl (3.5-5.0); Alkaline Phosphatase 127 U/L (38-126); Blood Urea Nitrogen 16 mg/dl (9-20); Calcium 8.8 mg/dl (8.4-10.2); Carbon Dioxide 26 mmol/L (22-30); Chloride 107 mmol/L (98-107); Glucose 139 mg/dl (70-99); HDL Cholesterol 34 mg/dl; LDL Cholesterol, Calculated 28 mg/dl; Potassium 4.7 mmol/L (3.5-5.1); Sodium 141 mmol/L (135-145); Total Bilirubin 0.5 mg/dl (0.2-1.3); Total Cholesterol 86 mg/dl (50-199); Triglyceride 122 mg/dl (10-149); Very Low Density Lipoprotein 24 mg/dl (0-30); eGFR > 60.00
[2024-08-16 12:18] LABS: Glycohemoglobin (HgbA1c) 7.3 % (4.0-5.6)
[2024-08-16 13:27] LABS: Cortisol, Random 12.2 ug/dl; TSH Reflex To Free T4 3.91 uIU/ml (0.47-4.68)
[2024-08-16 14:14] LABS: Microalbumin, Random Urine 1.6 mg/dl (0.6-1.7); Microalbumin/creatinine Ratio 9.4 mg/g
[2024-08-17 21:24] LABS: Adrenocorticotropic Hormone 8.2 pg/mL (7.2-63.3)
== END ==
LOC: REG 08:20
PROVIDERS: ATTENDING PHYSICIAN Internal Medicine Cardiovascular Disease; FAMILY PHYSICIAN Family Medicine; REFERRING PHYSICIAN Internal Medicine Hematology & Oncology
DX: E78.2 Mixed hyperlipidemia (principal); E78.5 Hyperlipidemia, unspecified; E11.21 Type 2 diabetes mellitus with diabetic nephropathy; D72.829 Elevated white blood cell count, unspecified; Z72.0 Tobacco use; C22.0 Liver cell carcinoma
CPT/HCPCS: 36415; 80053; 80061; 82024; 82043; 82533; 82570; 83036; 84443

== ENCOUNTER → 2024-08-21 11:03 | Outpatient (REF) | payer MEDICARE, OTHER, SELFPAY ==
[2024-08-21 13:37] LABS: % Basophils 0.4 % (0-2); % Eosinophils 2.9 % (0-6); % Immature Granulocytes 0.4 % (0-0.5); % Lymphocytes 16.9 % (20.5-51.1); % Monocytes 10.9 % (1.7-9.3); % Neutrophils 68.5 % (42.2-75.2); Absolute Eosinophils 0.3 10^3/uL (0-0.7); Absolute Lymphocytes 1.7 10^3/uL (1.2-3.4); Absolute Monocytes 1.1 10^3/uL (0.1-0.6); Absolute Neutrophils 6.8 10^3/uL (1.4-6.5); Hematocrit 40.8 % (39.0-52.0); Hemoglobin 13.1 g/dL (13.0-18.0); Mean Corp Hgb Conc. 32.1 g/dL (33.0-37.0); Mean Corpuscular Hgb 28.3 pg (27.0-31.0); Mean Corpuscular Volume 88.1 fL (80.0-94.0); Mean Platelet Volume 10.4 fL (7.4-10.4); Nucleated Red Blood Cells % 0 % (-); Platelet Count 263 10^3/uL (130-400); Red Blood Cell Count 4.63 10^6/uL (4.70-6.10); Red Cell Dist. Width 17.2 % (11.5-14.5); White Blood Cell Count 9.9 10^3/uL (4.8-10.8)
[2024-08-21 14:12] LABS: ALT (SGPT) 48 U/L (0-50); AST (SGOT) 51 U/L (17-59); Albumin 3.6 g/dl (3.5-5.0); Alkaline Phosphatase 134 U/L (38-126); Blood Urea Nitrogen 18 mg/dl (9-20); Calcium 9.1 mg/dl (8.4-10.2); Carbon Dioxide 26 mmol/L (22-30); Chloride 108 mmol/L (98-107); Glucose 117 mg/dl (70-99); Potassium 4.8 mmol/L (3.5-5.1); Sodium 139 mmol/L (135-145); Total Bilirubin 0.4 mg/dl (0.2-1.3); Total Protein 6.3 g/dl (6.3-8.2); eGFR > 60.00
[2024-08-21 14:34] LABS: TSH 4.53 uIU/ml (0.47-4.68)
[2024-08-21 15:05] LABS: Protein/creatinine Ratio 0.3; Urine Protein 12 mg/dl
[2024-08-22 21:23] LABS: Adrenocorticotropic Hormone 15.2 pg/mL (7.2-63.3)
== END ==
LOC: REG 11:03
PROVIDERS: ATTENDING PHYSICIAN Internal Medicine Hematology & Oncology; FAMILY PHYSICIAN Family Medicine
DX: C22.0 Liver cell carcinoma (principal); D72.829 Elevated white blood cell count, unspecified; Z72.0 Tobacco use; E78.5 Hyperlipidemia, unspecified
CPT/HCPCS: 36415; 80053; 82024; 82570; 84156; 84443; 85025

== ENCOUNTER → 2024-09-11 10:01 | Outpatient (REF) | payer MEDICARE, OTHER, SELFPAY ==
[2024-09-11 11:04] LABS: % Basophils 0.4 % (0-2); % Eosinophils 2.1 % (0-6); % Immature Granulocytes 0.4 % (0-0.5); % Lymphocytes 15.9 % (20.5-51.1); % Neutrophils 68.2 % (42.2-75.2); Absolute Eosinophils 0.2 10^3/uL (0-0.7); Absolute Lymphocytes 1.4 10^3/uL (1.2-3.4); Absolute Monocytes 1.2 10^3/uL (0.1-0.6); Absolute Neutrophils 6.2 10^3/uL (1.4-6.5); Hematocrit 41.4 % (39.0-52.0); Hemoglobin 13.4 g/dL (13.0-18.0); Mean Corp Hgb Conc. 32.4 g/dL (33.0-37.0); Mean Corpuscular Volume 89.6 fL (80.0-94.0); Mean Platelet Volume 10.6 fL (7.4-10.4); Nucleated Red Blood Cells % 0 % (-); Platelet Count 183 10^3/uL (130-400); Red Blood Cell Count 4.62 10^6/uL (4.70-6.10); Red Cell Dist. Width 18.4 % (11.5-14.5)
[2024-09-11 11:50] LABS: ALT (SGPT) 68 U/L (0-50); AST (SGOT) 87 U/L (17-59); Albumin 3.7 g/dl (3.5-5.0); Alkaline Phosphatase 141 U/L (38-126); Blood Urea Nitrogen 12 mg/dl (9-20); Calcium 8.6 mg/dl (8.4-10.2); Carbon Dioxide 23 mmol/L (22-30); Chloride 110 mmol/L (98-107); Glucose 122 mg/dl (70-99); Potassium 4.4 mmol/L (3.5-5.1); Sodium 140 mmol/L (135-145); Total Bilirubin 0.7 mg/dl (0.2-1.3); Total Protein 6.4 g/dl (6.3-8.2); eGFR > 60.00
[2024-09-11 11:57] LABS: Urine Protein 7 mg/dl
== END ==
LOC: REG 10:01
PROVIDERS: ATTENDING PHYSICIAN Internal Medicine Hematology & Oncology; FAMILY PHYSICIAN Family Medicine
DX: D72.829 Elevated white blood cell count, unspecified (principal); Z72.0 Tobacco use; C22.0 Liver cell carcinoma
CPT/HCPCS: 36415; 80053; 82570; 84156; 85025

== ENCOUNTER → 2024-09-18 09:48 | Outpatient (REF) | payer MEDICARE, OTHER, SELFPAY ==
[2024-09-18 10:33] LABS: % Basophils 0.6 % (0-2); % Eosinophils 2.9 % (0-6); % Immature Granulocytes 0.4 % (0-0.5); % Lymphocytes 19.1 % (20.5-51.1); % Monocytes 16.8 % (1.7-9.3); % Neutrophils 60.2 % (42.2-75.2); Absolute Basophils 0.1 10^3/uL (0-0.2); Absolute Eosinophils 0.2 10^3/uL (0-0.7); Absolute Lymphocytes 1.5 10^3/uL (1.2-3.4); Absolute Monocytes 1.4 10^3/uL (0.1-0.6); Absolute Neutrophils 4.9 10^3/uL (1.4-6.5); Hematocrit 41.7 % (39.0-52.0); Hemoglobin 13.5 g/dL (13.0-18.0); Mean Corp Hgb Conc. 32.4 g/dL (33.0-37.0); Mean Corpuscular Hgb 28.8 pg (27.0-31.0); Mean Corpuscular Volume 88.9 fL (80.0-94.0); Mean Platelet Volume 10.9 fL (7.4-10.4); Nucleated Red Blood Cells % 0 % (-); Platelet Count 165 10^3/uL (130-400); Red Blood Cell Count 4.69 10^6/uL (4.70-6.10); Red Cell Dist. Width 18.7 % (11.5-14.5); White Blood Cell Count 8.1 10^3/uL (4.8-10.8)
[2024-09-18 11:35] LABS: TSH 7.82 uIU/ml (0.47-4.68)
[2024-09-18 13:01] LABS: ALT (SGPT) 86 U/L (0-50); AST (SGOT) 108 U/L (17-59); Albumin 3.5 g/dl (3.5-5.0); Alkaline Phosphatase 140 U/L (38-126); Blood Urea Nitrogen 14 mg/dl (9-20); Calcium 8.8 mg/dl (8.4-10.2); Carbon Dioxide 24 mmol/L (22-30); Chloride 111 mmol/L (98-107); Glucose 144 mg/dl (70-99); Potassium 4.5 mmol/L (3.5-5.1); Sodium 141 mmol/L (135-145); Total Bilirubin 0.7 mg/dl (0.2-1.3); Total Protein 6.4 g/dl (6.3-8.2); eGFR > 60.00
[2024-09-19 21:55] LABS: Adrenocorticotropic Hormone 16.9 pg/mL (7.2-63.3)
== END ==
LOC: REG 09:48
PROVIDERS: ATTENDING PHYSICIAN Internal Medicine Hematology & Oncology; FAMILY PHYSICIAN Family Medicine
DX: D72.829 Elevated white blood cell count, unspecified (principal); Z72.0 Tobacco use; C22.0 Liver cell carcinoma; E78.5 Hyperlipidemia, unspecified
CPT/HCPCS: 36415; 80053; 82024; 84443; 85025

== ENCOUNTER → 2024-10-02 09:36 | Outpatient (REF) | payer MEDICARE, OTHER, SELFPAY ==
[2024-10-02 10:16] LABS: % Basophils 0.6 % (0-2); % Eosinophils 2.5 % (0-6); % Immature Granulocytes 0.4 % (0-0.5); % Lymphocytes 16.9 % (20.5-51.1); % Monocytes 17.3 % (1.7-9.3); % Neutrophils 62.3 % (42.2-75.2); Absolute Basophils 0.1 10^3/uL (0-0.2); Absolute Eosinophils 0.2 10^3/uL (0-0.7); Absolute Lymphocytes 1.4 10^3/uL (1.2-3.4); Absolute Monocytes 1.4 10^3/uL (0.1-0.6); Absolute Neutrophils 5.2 10^3/uL (1.4-6.5); Hematocrit 42.7 % (39.0-52.0); Hemoglobin 13.7 g/dL (13.0-18.0); Mean Corp Hgb Conc. 32.1 g/dL (33.0-37.0); Mean Corpuscular Hgb 28.8 pg (27.0-31.0); Mean Corpuscular Volume 89.7 fL (80.0-94.0); Mean Platelet Volume 10.4 fL (7.4-10.4); Nucleated Red Blood Cells % 0 % (-); Platelet Count 134 10^3/uL (130-400); Red Blood Cell Count 4.76 10^6/uL (4.70-6.10); Red Cell Dist. Width 19.7 % (11.5-14.5); White Blood Cell Count 8.3 10^3/uL (4.8-10.8)
[2024-10-02 10:48] LABS: ALT (SGPT) 89 U/L (0-50); AST (SGOT) 137 U/L (17-59); Albumin 3.4 g/dl (3.5-5.0); Alkaline Phosphatase 200 U/L (38-126); Blood Urea Nitrogen 15 mg/dl (9-20); Calcium 8.6 mg/dl (8.4-10.2); Carbon Dioxide 25 mmol/L (22-30); Chloride 110 mmol/L (98-107); Glucose 133 mg/dl (70-99); Potassium 4.2 mmol/L (3.5-5.1); Sodium 140 mmol/L (135-145); Total Bilirubin 1.3 mg/dl (0.2-1.3); Total Protein 6.6 g/dl (6.3-8.2); eGFR > 60.00
[2024-10-02 11:01] LABS: Urine Protein 9 mg/dl
== END ==
LOC: REG 09:36
PROVIDERS: ATTENDING PHYSICIAN Internal Medicine Hematology & Oncology; FAMILY PHYSICIAN Family Medicine
DX: C22.0 Liver cell carcinoma (principal); Z72.0 Tobacco use
CPT/HCPCS: 36415; 80053; 82570; 84156; 85025

== ENCOUNTER → 2024-10-03 14:02 | Outpatient (REF) | payer MEDICARE, OTHER, SELFPAY ==
[2024-10-03 15:41] LABS: TSH Reflex To Free T4 9.36 uIU/ml (0.47-4.68)
[2024-10-03 16:12] LABS: Free T4 1.66 ng/dl (0.78-2.19)
== END ==
LOC: OIDL 14:02
PROVIDERS: ATTENDING PHYSICIAN Internal Medicine Hematology & Oncology
DX: D72.829 Elevated white blood cell count, unspecified (principal); Z72.0 Tobacco use; C22.0 Liver cell carcinoma; R53.82 Chronic fatigue, unspecified
CPT/HCPCS: 84439; 84443

== ENCOUNTER → 2024-10-09 11:00 | Outpatient (REF) | payer MEDICARE, OTHER, SELFPAY ==
[2024-10-09 12:03] LABS: ALT (SGPT) 155 U/L (0-50); AST (SGOT) 238 U/L (17-59); Albumin 3.3 g/dl (3.5-5.0); Alkaline Phosphatase 237 U/L (38-126); Blood Urea Nitrogen 18 mg/dl (9-20); Calcium 8.8 mg/dl (8.4-10.2); Carbon Dioxide 21 mmol/L (22-30); Chloride 113 mmol/L (98-107); Glucose 126 mg/dl (70-99); Potassium 4.1 mmol/L (3.5-5.1); Sodium 141 mmol/L (135-145); Total Protein 6.7 g/dl (6.3-8.2); eGFR > 60.00
== END ==
LOC: REG 11:00
PROVIDERS: ATTENDING PHYSICIAN Internal Medicine Hematology & Oncology; FAMILY PHYSICIAN Family Medicine
DX: D72.829 Elevated white blood cell count, unspecified (principal); Z72.0 Tobacco use; C22.0 Liver cell carcinoma
CPT/HCPCS: 36415; 80053

== ENCOUNTER → 2024-10-16 11:14 | Outpatient (REF) | payer MEDICARE, OTHER, SELFPAY ==
[2024-10-16 11:58] LABS: Hematocrit 44.8 % (39.0-52.0); Hemoglobin 14.3 g/dL (13.0-18.0); Mean Corp Hgb Conc. 31.9 g/dL (33.0-37.0); Mean Corpuscular Volume 87.0 fL (80.0-94.0); Nucleated Red Blood Cells % 0 % (-); Platelet Count 143 10^3/uL (130-400); Red Cell Dist. Width 19.3 % (11.5-14.5)
[2024-10-16 12:26] LABS: ALT (SGPT) 103 U/L (0-50); AST (SGOT) 149 U/L (17-59); Albumin 3.3 g/dl (3.5-5.0); Alkaline Phosphatase 246 U/L (38-126); Blood Urea Nitrogen 15 mg/dl (9-20); Calcium 8.9 mg/dl (8.4-10.2); Carbon Dioxide 23 mmol/L (22-30); Chloride 112 mmol/L (98-107); Glucose 126 mg/dl (70-99); Potassium 4.3 mmol/L (3.5-5.1); Sodium 137 mmol/L (135-145); Total Protein 6.8 g/dl (6.3-8.2); eGFR > 60.00
[2024-10-16 12:57] LABS: TSH 6.24 uIU/ml (0.47-4.68)
== END ==
LOC: REG 11:14
PROVIDERS: ATTENDING PHYSICIAN Internal Medicine Hematology & Oncology; FAMILY PHYSICIAN Family Medicine
DX: D72.829 Elevated white blood cell count, unspecified (principal); Z72.0 Tobacco use; C22.0 Liver cell carcinoma; E78.5 Hyperlipidemia, unspecified
CPT/HCPCS: 36415; 80053; 82024; 84443; 85025

== ENCOUNTER → 2024-10-17 15:45 | Outpatient (REF) | payer MEDICARE, OTHER, SELFPAY | LOC: RAD 15:45 | PROVIDERS: ATTENDING PHYSICIAN Nurse Practitioner Adult Health; FAMILY PHYSICIAN Family Medicine | DX: C22.0 Liver cell carcinoma (principal); Z72.0 Tobacco use; D72.829 Elevated white blood cell count, unspecified | CPT/HCPCS: 76700 ==

== ENCOUNTER → 2024-10-23 10:24 | Outpatient (REF) | payer MEDICARE, OTHER, SELFPAY ==
[2024-10-23 11:35] LABS: Hematocrit 43.8 % (39.0-52.0); Hemoglobin 14.1 g/dL (13.0-18.0); Mean Corp Hgb Conc. 32.2 g/dL (33.0-37.0); Mean Corpuscular Volume 85.7 fL (80.0-94.0); Nucleated Red Blood Cells % 0 % (-); Platelet Count 139 10^3/uL (130-400); Red Cell Dist. Width 18.5 % (11.5-14.5)
[2024-10-23 13:14] LABS: ALT (SGPT) 80 U/L (0-50); AST (SGOT) 128 U/L (17-59); Albumin 3.4 g/dl (3.5-5.0); Alkaline Phosphatase 239 U/L (38-126); Blood Urea Nitrogen 15 mg/dl (9-20); Calcium 8.7 mg/dl (8.4-10.2); Carbon Dioxide 22 mmol/L (22-30); Chloride 112 mmol/L (98-107); Glucose 165 mg/dl (70-99); Potassium 3.9 mmol/L (3.5-5.1); Sodium 138 mmol/L (135-145); Total Protein 6.8 g/dl (6.3-8.2); eGFR > 60.00
== END ==
LOC: REG 10:24
PROVIDERS: ATTENDING PHYSICIAN Nurse Practitioner Adult Health; FAMILY PHYSICIAN Family Medicine
DX: D72.829 Elevated white blood cell count, unspecified (principal); Z72.0 Tobacco use; C22.0 Liver cell carcinoma
CPT/HCPCS: 36415; 80053; 82570; 84156; 85025

== ENCOUNTER → 2024-11-06 10:11 | Outpatient (REF) | payer MEDICARE, OTHER, SELFPAY ==
[2024-11-06 11:08] LABS: ALT (SGPT) 79 U/L (0-50); AST (SGOT) 106 U/L (17-59); Albumin 3.6 g/dl (3.5-5.0); Alkaline Phosphatase 219 U/L (38-126); Total Protein 7.1 g/dl (6.3-8.2)
== END ==
LOC: REG 10:11
PROVIDERS: ATTENDING PHYSICIAN Internal Medicine Hematology & Oncology; FAMILY PHYSICIAN Family Medicine
DX: D72.829 Elevated white blood cell count, unspecified (principal); Z72.0 Tobacco use; C22.0 Liver cell carcinoma
CPT/HCPCS: 36415; 80076

== ENCOUNTER → 2024-11-12 07:38 | Outpatient (REF) | payer MEDICARE, OTHER, SELFPAY | LOC: MRI 07:38 | PROVIDERS: ATTENDING PHYSICIAN Internal Medicine Hematology & Oncology; FAMILY PHYSICIAN Family Medicine | DX: D72.829 Elevated white blood cell count, unspecified (principal); Z72.0 Tobacco use; C22.0 Liver cell carcinoma | CPT/HCPCS: 74183; A9581 ==

== ENCOUNTER → 2024-11-13 11:55 | Outpatient (REF) | payer MEDICARE, OTHER, SELFPAY ==
[2024-11-13 13:19] LABS: Hematocrit 46.2 % (39.0-52.0); Hemoglobin 14.8 g/dL (13.0-18.0); Mean Corp Hgb Conc. 32.0 g/dL (33.0-37.0); Mean Corpuscular Volume 84.8 fL (80.0-94.0); Nucleated Red Blood Cells % 0 % (-); Platelet Count 121 10^3/uL (130-400); Red Cell Dist. Width 18.5 % (11.5-14.5)
[2024-11-13 14:22] LABS: ALT (SGPT) 68 U/L (0-50); AST (SGOT) 111 U/L (17-59); Albumin 3.6 g/dl (3.5-5.0); Alkaline Phosphatase 195 U/L (38-126); Blood Urea Nitrogen 15 mg/dl (9-20); Calcium 9.1 mg/dl (8.4-10.2); Carbon Dioxide 21 mmol/L (22-30); Chloride 110 mmol/L (98-107); Glucose 161 mg/dl (70-99); Potassium 3.8 mmol/L (3.5-5.1); Sodium 140 mmol/L (135-145); Total Protein 7.1 g/dl (6.3-8.2); eGFR > 60.00
[2024-11-13 14:45] LABS: TSH 5.20 uIU/ml (0.47-4.68)
== END ==
LOC: REG 11:55
PROVIDERS: ATTENDING PHYSICIAN Internal Medicine Hematology & Oncology; FAMILY PHYSICIAN Family Medicine
DX: D72.829 Elevated white blood cell count, unspecified (principal); Z72.0 Tobacco use; C22.0 Liver cell carcinoma; I10 Essential (primary) hypertension
CPT/HCPCS: 36415; 80053; 80076; 82024; 84443; 85025

== ENCOUNTER → 2024-11-20 12:35 | Outpatient (REF) | payer MEDICARE, OTHER, SELFPAY ==
[2024-11-20 13:46] LABS: ALT (SGPT) 59 U/L (0-50); AST (SGOT) 91 U/L (17-59); Albumin 3.3 g/dl (3.5-5.0); Alkaline Phosphatase 192 U/L (38-126); Total Protein 6.8 g/dl (6.3-8.2)
[2024-11-21 18:40] LABS: Hepatitis B Surface Antigen Negative (Negative)
[2024-11-21 18:58] LABS: Hepatitis C Antibody Negative (Negative)
== END ==
LOC: REG 12:35
PROVIDERS: ATTENDING PHYSICIAN Internal Medicine Hematology & Oncology; FAMILY PHYSICIAN Family Medicine
DX: D72.829 Elevated white blood cell count, unspecified (principal); Z72.0 Tobacco use; C22.0 Liver cell carcinoma
CPT/HCPCS: 36415; 80076; 86704; 86706; 86803; 87340

== ENCOUNTER → 2024-11-28 11:36 | Outpatient (REF) | payer MEDICARE, OTHER, SELFPAY ==
[2024-11-28 14:25] LABS: ALT (SGPT) 68 U/L (0-50); AST (SGOT) 108 U/L (17-59); Albumin 3.8 g/dl (3.5-5.0); Alkaline Phosphatase 201 U/L (38-126); Total Protein 7.3 g/dl (6.3-8.2)
== END ==
LOC: REG 11:36
PROVIDERS: ATTENDING PHYSICIAN Internal Medicine Hematology & Oncology; FAMILY PHYSICIAN Family Medicine
DX: D72.829 Elevated white blood cell count, unspecified (principal); Z72.0 Tobacco use; C22.0 Liver cell carcinoma
CPT/HCPCS: 36415; 80076

== ENCOUNTER → 2024-12-04 11:03 | Outpatient (REF) | payer MEDICARE, OTHER, SELFPAY ==
[2024-12-04 12:46] LABS: Hematocrit 49.4 % (39.0-52.0); Hemoglobin 15.7 g/dL (13.0-18.0); Mean Corp Hgb Conc. 31.8 g/dL (33.0-37.0); Mean Corpuscular Volume 84.0 fL (80.0-94.0); Nucleated Red Blood Cells % 0 % (-); Platelet Count 113 10^3/uL (130-400); Red Cell Dist. Width 19.9 % (11.5-14.5)
[2024-12-04 13:29] LABS: ALT (SGPT) 66 U/L (0-50); AST (SGOT) 103 U/L (17-59); Albumin 3.9 g/dl (3.5-5.0); Alkaline Phosphatase 203 U/L (38-126); Blood Urea Nitrogen 15 mg/dl (9-20); Calcium 9.2 mg/dl (8.4-10.2); Carbon Dioxide 25 mmol/L (22-30); Chloride 110 mmol/L (98-107); Glucose 158 mg/dl (70-99); Potassium 3.9 mmol/L (3.5-5.1); Sodium 141 mmol/L (135-145); Total Protein 7.9 g/dl (6.3-8.2); eGFR > 60.00
[2024-12-04 13:55] LABS: TSH 4.83 uIU/ml (0.47-4.68)
== END ==
LOC: REG 11:03
PROVIDERS: ATTENDING PHYSICIAN Internal Medicine Hematology & Oncology; FAMILY PHYSICIAN Family Medicine
DX: D72.829 Elevated white blood cell count, unspecified (principal); Z72.0 Tobacco use; C22.0 Liver cell carcinoma; E78.5 Hyperlipidemia, unspecified
CPT/HCPCS: 36415; 80053; 82024; 82570; 84156; 84443; 85025

== ENCOUNTER → 2024-12-11 11:24 | Outpatient (REF) | payer MEDICARE, OTHER, SELFPAY ==
[2024-12-11 12:57] LABS: ALT (SGPT) 53 U/L (0-50); AST (SGOT) 84 U/L (17-59); Albumin 3.6 g/dl (3.5-5.0); Alkaline Phosphatase 180 U/L (38-126); Total Protein 7.1 g/dl (6.3-8.2)
== END ==
LOC: REG 11:24
PROVIDERS: ATTENDING PHYSICIAN Internal Medicine Hematology & Oncology; FAMILY PHYSICIAN Family Medicine
DX: D72.829 Elevated white blood cell count, unspecified (principal); Z72.0 Tobacco use; C22.0 Liver cell carcinoma
CPT/HCPCS: 36415; 80076

== ENCOUNTER → 2024-12-18 12:09 | Outpatient (REF) | payer MEDICARE, OTHER, SELFPAY ==
[2024-12-18 13:34] LABS: ALT (SGPT) 57 U/L (0-50); AST (SGOT) 92 U/L (17-59); Albumin 3.7 g/dl (3.5-5.0); Alkaline Phosphatase 192 U/L (38-126); Total Protein 7.5 g/dl (6.3-8.2)
== END ==
LOC: REG 12:09
PROVIDERS: ATTENDING PHYSICIAN Internal Medicine Hematology & Oncology; FAMILY PHYSICIAN Family Medicine
DX: D72.829 Elevated white blood cell count, unspecified (principal); Z72.0 Tobacco use; C22.0 Liver cell carcinoma
CPT/HCPCS: 36415; 80076

== ENCOUNTER → 2024-12-25 11:16 | Outpatient (REF) | payer MEDICARE, OTHER, SELFPAY ==
[2024-12-25 12:21] LABS: Hematocrit 49.1 % (39.0-52.0); Hemoglobin 16.1 g/dL (13.0-18.0); Mean Corp Hgb Conc. 32.8 g/dL (33.0-37.0); Mean Corpuscular Volume 83.8 fL (80.0-94.0); Nucleated Red Blood Cells % 0 % (-); Platelet Count 105 10^3/uL (130-400); Red Cell Dist. Width 22.0 % (11.5-14.5)
[2024-12-25 13:12] LABS: ALT (SGPT) 54 U/L (0-50); AST (SGOT) 88 U/L (17-59); Albumin 3.8 g/dl (3.5-5.0); Alkaline Phosphatase 183 U/L (38-126); Blood Urea Nitrogen 15 mg/dl (9-20); Calcium 9.4 mg/dl (8.4-10.2); Carbon Dioxide 25 mmol/L (22-30); Chloride 110 mmol/L (98-107); Glucose 100 mg/dl (70-99); HDL Cholesterol 42 mg/dl; LDL Cholesterol, Calculated 79 mg/dl; Potassium 4.0 mmol/L (3.5-5.1); Sodium 140 mmol/L (135-145); Total Protein 7.7 g/dl (6.3-8.2); Very Low Density Lipoprotein 34 mg/dl (0-30); eGFR > 60.00
[2024-12-25 13:25] LABS: Glycohemoglobin (HgbA1c) 7.8 % (4.0-5.6)
[2024-12-25 13:40] LABS: TSH 7.85 uIU/ml (0.47-4.68)
== END ==
LOC: REG 11:16
PROVIDERS: ATTENDING PHYSICIAN Internal Medicine Hematology & Oncology; FAMILY PHYSICIAN Family Medicine
DX: D72.829 Elevated white blood cell count, unspecified (principal); Z72.0 Tobacco use; C22.0 Liver cell carcinoma; I10 Essential (primary) hypertension; E11.39 Type 2 diabetes mellitus with other diabetic ophthalmic complication; E78.5 Hyperlipidemia, unspecified; Z00.00 Encounter for general adult medical examination without abnormal findings
CPT/HCPCS: 36415; 80053; 80061; 82024; 82248; 82570; 83036; 84156; 84443; 85025

== ENCOUNTER → 2025-01-01 11:52 | Outpatient (REF) | payer MEDICARE, OTHER, SELFPAY ==
[2025-01-01 13:44] LABS: ALT (SGPT) 57 U/L (0-50); AST (SGOT) 88 U/L (17-59); Albumin 3.8 g/dl (3.5-5.0); Alkaline Phosphatase 182 U/L (38-126); Total Protein 7.5 g/dl (6.3-8.2)
== END ==
LOC: REG 11:52
PROVIDERS: ATTENDING PHYSICIAN Internal Medicine Hematology & Oncology; FAMILY PHYSICIAN Family Medicine
DX: D72.829 Elevated white blood cell count, unspecified (principal); Z72.0 Tobacco use; C22.0 Liver cell carcinoma
CPT/HCPCS: 36415; 80076

== ENCOUNTER → 2025-01-08 11:33 | Outpatient (REF) | payer MEDICARE, OTHER, SELFPAY ==
[2025-01-08 14:29] LABS: ALT (SGPT) 45 U/L (0-50); AST (SGOT) 72 U/L (17-59); Albumin 3.7 g/dl (3.5-5.0); Alkaline Phosphatase 168 U/L (38-126); Total Protein 7.2 g/dl (6.3-8.2)
== END ==
LOC: REG 11:33
PROVIDERS: ATTENDING PHYSICIAN Internal Medicine Hematology & Oncology; FAMILY PHYSICIAN Family Medicine
DX: D72.829 Elevated white blood cell count, unspecified (principal); Z72.0 Tobacco use; C22.0 Liver cell carcinoma; R09.89 Other specified symptoms and signs involving the circulatory and respiratory systems
CPT/HCPCS: 36415; 71046; 80076

== ENCOUNTER → 2025-01-15 10:48 | Outpatient (REF) | payer MEDICARE, OTHER, SELFPAY ==
[2025-01-15 12:01] LABS: Hematocrit 48.6 % (39.0-52.0); Hemoglobin 16.0 g/dL (13.0-18.0); Mean Corp Hgb Conc. 32.9 g/dL (33.0-37.0); Mean Corpuscular Volume 86.2 fL (80.0-94.0); Nucleated Red Blood Cells % 0 % (-); Platelet Count 93 10^3/uL (130-400); Red Cell Dist. Width 24.7 % (11.5-14.5)
[2025-01-15 12:18] LABS: ALT (SGPT) 61 U/L (0-50); AST (SGOT) 97 U/L (17-59); Albumin 3.6 g/dl (3.5-5.0); Alkaline Phosphatase 166 U/L (38-126); Blood Urea Nitrogen 17 mg/dl (9-20); Calcium 9.2 mg/dl (8.4-10.2); Carbon Dioxide 23 mmol/L (22-30); Chloride 111 mmol/L (98-107); Glucose 216 mg/dl (70-99); Potassium 4.0 mmol/L (3.5-5.1); Sodium 140 mmol/L (135-145); Total Protein 7.0 g/dl (6.3-8.2); eGFR > 60.00
[2025-01-15 12:49] LABS: TSH 7.11 uIU/ml (0.47-4.68)
== END ==
LOC: REG 10:48
PROVIDERS: ATTENDING PHYSICIAN Internal Medicine Hematology & Oncology; FAMILY PHYSICIAN Family Medicine
DX: D72.829 Elevated white blood cell count, unspecified (principal); Z72.0 Tobacco use; C22.0 Liver cell carcinoma; E78.5 Hyperlipidemia, unspecified
CPT/HCPCS: 36415; 80053; 82024; 82248; 82570; 84156; 84443; 85025

== ENCOUNTER → 2025-01-22 11:40 | Outpatient (REF) | payer MEDICARE, OTHER, SELFPAY ==
[2025-01-22 13:16] LABS: ALT (SGPT) 52 U/L (0-50); AST (SGOT) 85 U/L (17-59); Albumin 3.7 g/dl (3.5-5.0); Alkaline Phosphatase 166 U/L (38-126); Total Protein 7.2 g/dl (6.3-8.2)
== END ==
LOC: REG 11:40
PROVIDERS: ATTENDING PHYSICIAN Internal Medicine Hematology & Oncology
DX: D72.829 Elevated white blood cell count, unspecified (principal); Z72.0 Tobacco use; C22.0 Liver cell carcinoma
CPT/HCPCS: 36415; 80076

== ENCOUNTER → 2025-01-29 11:47 | Outpatient (REF) | payer MEDICARE, OTHER, SELFPAY | LOC: REG 11:47 | PROVIDERS: ATTENDING PHYSICIAN Internal Medicine Hematology & Oncology; FAMILY PHYSICIAN Family Medicine | DX: D72.829 Elevated white blood cell count, unspecified (principal); Z72.0 Tobacco use; C22.0 Liver cell carcinoma | CPT/HCPCS: 36415 ==

== ENCOUNTER → 2025-02-05 11:51 | Outpatient (REF) | payer MEDICARE, OTHER, SELFPAY ==
[2025-02-05 12:21] LABS: Hematocrit 49.4 % (39.0-52.0); Hemoglobin 16.0 g/dL (13.0-18.0); Mean Corp Hgb Conc. 32.4 g/dL (33.0-37.0); Mean Corpuscular Volume 90.3 fL (80.0-94.0); Nucleated Red Blood Cells % 0 % (-); Red Cell Dist. Width 24.5 % (11.5-14.5)
[2025-02-05 13:01] LABS: Normal RBC Morphology No; Platelet Count 98 10^3/uL (130-400)
[2025-02-05 13:02] LABS: Anisocytosis 1+; Hypochromasia 1+; Ovalocytes 1+; Polychromasia 1+
[2025-02-05 13:04] LABS: ALT (SGPT) 70 U/L (0-50); AST (SGOT) 111 U/L (17-59); Albumin 3.5 g/dl (3.5-5.0); Alkaline Phosphatase 200 U/L (38-126); Blood Urea Nitrogen 18 mg/dl (9-20); Calcium 9.2 mg/dl (8.4-10.2); Carbon Dioxide 21 mmol/L (22-30); Chloride 109 mmol/L (98-107); Glucose 237 mg/dl (70-99); Potassium 3.8 mmol/L (3.5-5.1); Sodium 136 mmol/L (135-145); Total Protein 7.1 g/dl (6.3-8.2); eGFR > 60.00
[2025-02-05 13:40] LABS: TSH 33.10 uIU/ml (0.47-4.68)
== END ==
LOC: REG 11:51
PROVIDERS: ATTENDING PHYSICIAN Internal Medicine Hematology & Oncology; FAMILY PHYSICIAN Family Medicine
DX: D72.829 Elevated white blood cell count, unspecified (principal); Z72.0 Tobacco use; C22.0 Liver cell carcinoma; E78.5 Hyperlipidemia, unspecified
CPT/HCPCS: 36415; 80053; 82024; 82248; 82570; 84156; 84443; 85025

== ENCOUNTER → 2025-02-26 12:37 | Outpatient (REF) | payer MEDICARE, OTHER, SELFPAY ==
[2025-02-26 13:41] LABS: Hematocrit 47.2 % (39.0-52.0); Hemoglobin 16.1 g/dL (13.0-18.0); Mean Corp Hgb Conc. 34.1 g/dL (33.0-37.0); Mean Corpuscular Volume 89.4 fL (80.0-94.0); Nucleated Red Blood Cells % 0 % (-); Platelet Count 97 10^3/uL (130-400); Red Cell Dist. Width 21.7 % (11.5-14.5)
[2025-02-26 15:38] LABS: ALT (SGPT) 71 U/L (0-50); AST (SGOT) 102 U/L (17-59); Albumin 3.6 g/dl (3.5-5.0); Alkaline Phosphatase 188 U/L (38-126); Blood Urea Nitrogen 13 mg/dl (9-20); Calcium 9.3 mg/dl (8.4-10.2); Carbon Dioxide 26 mmol/L (22-30); Chloride 106 mmol/L (98-107); Glucose 136 mg/dl (70-99); Potassium 3.8 mmol/L (3.5-5.1); Sodium 138 mmol/L (135-145); Total Protein 7.1 g/dl (6.3-8.2); eGFR > 60.00
[2025-02-26 16:03] LABS: TSH 29.80 uIU/ml (0.47-4.68)
== END ==
LOC: REG 12:37
PROVIDERS: ATTENDING PHYSICIAN Internal Medicine Hematology & Oncology; FAMILY PHYSICIAN Family Medicine
DX: D72.829 Elevated white blood cell count, unspecified (principal); Z72.0 Tobacco use; C22.0 Liver cell carcinoma; E78.5 Hyperlipidemia, unspecified
CPT/HCPCS: 36415; 80053; 82024; 82248; 82570; 84156; 84443; 85025

== ENCOUNTER → 2025-03-09 08:49 | Outpatient (REF) | payer MEDICARE, OTHER, SELFPAY | LOC: MRI 3T 08:49 | PROVIDERS: ATTENDING PHYSICIAN Internal Medicine Hematology & Oncology; FAMILY PHYSICIAN Family Medicine | DX: D72.829 Elevated white blood cell count, unspecified (principal); C22.0 Liver cell carcinoma | CPT/HCPCS: 74183; A9581 ==

== ENCOUNTER → 2025-03-19 10:59 | Outpatient (REF) | payer MEDICARE, OTHER, SELFPAY ==
[2025-03-19 11:51] LABS: Hematocrit 49.9 % (39.0-52.0); Hemoglobin 17.3 g/dL (13.0-18.0); Mean Corp Hgb Conc. 34.7 g/dL (33.0-37.0); Mean Corpuscular Volume 91.2 fL (80.0-94.0); Nucleated Red Blood Cells % 0 % (-); Platelet Count 90 10^3/uL (130-400); Red Cell Dist. Width 19.6 % (11.5-14.5)
[2025-03-19 13:26] LABS: ALT (SGPT) 59 U/L (0-50); AST (SGOT) 95 U/L (17-59); Albumin 3.6 g/dl (3.5-5.0); Alkaline Phosphatase 239 U/L (38-126); Blood Urea Nitrogen 14 mg/dl (9-20); Calcium 9.1 mg/dl (8.4-10.2); Carbon Dioxide 22 mmol/L (22-30); Chloride 106 mmol/L (98-107); Glucose 190 mg/dl (70-99); Potassium 3.8 mmol/L (3.5-5.1); Sodium 136 mmol/L (135-145); Total Protein 7.5 g/dl (6.3-8.2); eGFR > 60.00
[2025-03-19 17:16] LABS: TSH 29.10 uIU/ml (0.47-4.68)
== END ==
LOC: REG 10:59
PROVIDERS: ATTENDING PHYSICIAN Internal Medicine Hematology & Oncology
DX: D72.829 Elevated white blood cell count, unspecified (principal); Z72.0 Tobacco use; C22.0 Liver cell carcinoma; E78.5 Hyperlipidemia, unspecified
CPT/HCPCS: 36415; 80053; 82024; 82570; 84156; 84443; 85025